=== PATIENT | male | born 1945 | race Caucasian/White ===

== ENCOUNTER → 2016-11-08 | Outpatient (CLI) | payer MEDICARE ==
[~2016-11-08] MED LIST: ATIVAN PO; CELEXA PO; CLEOCIN HCL300 M1 PO; DOXAZOSIN MESYLA4 MG PO; GLYNASE PO; IBUPROFEN800 MG PO; KLONOPIN0.5 MG PO; LASIX20 MG PO; LISINOPRIL20 MG PO; LORTAB 5/500 TA1 TA1 PO; METFORMIN HCL850 MG PO; TRAMADOL HCL50 M1 PO; VOLTAREN75 MG PO; ZOCOR20 MG PO
--- NOTE | ~2016-11-08 | NM19 ---
[facility] A Service of [facility] & [facility] RADIOLOGY TEXT RESULTS PATIENT: JOURDAN LAMBERT [facility] [id number] : 41 UNIT #: [id number] AGE: [address]: Inez Woods APRN SEX: M ORDER DR: [id number] [facility] [address] [place], [place] [address] [id number] O MR#: [id number] [facility] #: [id number] NAME: JOURDAN LAMBERT : 1945 SEX: M STUDY DATE/TIME: 11/08/2016 10:35 UNIT: [facility] ROOM: STUDY DESCRIPTION: NM Gastric Emptying Study Attending Physician: Inez Woods A.P.R.N. Referring Physician: Inez Woods A.P.R.N. Ordering Physician: Inez Woods A.P.R.N. Primary Care Physician: Inez Woods A.P.R.N. MEDICAL IMAGING REPORT This report is preliminary unless electronic signature is present EXAM Nuclear medicine gastric emptying study, 11/08/2016 HISTORY 71-year-old male with complaints of early satiety, bloating, feels full for a long time, shortness of breath with exertion, incontinence, cannot control bowel movements, some diarrhea, some nausea, left side abdominal pain, more gassy than normal, 40 pound weight gain since starting insulin shots 5 years ago. Patient states symptoms began in 2011. No previous history of abdominal surgery. COMPARISON None FINDINGS Following the ingestion of 543 mcCi of technetium 99m sulfur colloid in scrambled eggs with water, anterior and posterior planar images were obtained of the abdomen and a time-activity curve was calculated. The calculated T-1/2 emptying time is 31 minutes (normal at this institution being 65-90 minutes). The percent emptying at 60 minutes is approximate 70% with approximately 26% remaining). IMPRESSION Normal gastric emptying study with nearly 74% emptying at the 1 hour time lyly, T-1/2 emptying time 31 minutes. Dictated by... Pamela August M.D. THIS IS AN ELECTRONICALLY VERIFIED REPORT Pamela August M.D. at 11/14/2016 8:30 AM [facility] A Service of [facility] RADIOLOGY TEXT RESULTS PATIENT: JOURDAN LAMBERT LOCATION: [facility] #: [id number] : 41 UNIT #: [id number] AGE: [address]: Inez Woods APRN SEX: M ORDER DR: TD: 11/11/2016 10:53 JOB #: [id number] MEDICAL IMAGING REPORT Page 1 of 1 COPY
== END | disposition home or self-care (01) ==
LOC: CNUC 09:37
DX: R68.81 Early satiety (principal)
CPT/HCPCS: 78264; A9541